=== PATIENT | female | born 1965 | race American Indian/Alaskan Native ===

== ENCOUNTER 2018-04-25 08:28 | Day surgery (SDC) | payer BC ==
--- NOTE | 2018-04-25 11:31 | PCM.SURG1 ---
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 Post-Operative Diagnosis: Thyroid nodule Operation Performed: US guided FNA Specimen/Specimens Removed: 25 g FNA x 5 passes Estimated Blood Loss: EBL {In ML}: 0 Blood Products Given: N/A Drains Used: No Drains Post-Op Condition: Good Date of Surgery/Procedure: 04/25/18 Time of Surgery/Procedure: 11:25
--- NOTE | 2018-04-25 11:32 | CP.SDSHP ---
Same Day Surgery H & P - History Proposed Procedure: US guided FNA thyroid nodule Pre-Op Diagnosis: Thyroid nodule - Allergies Allergies: Allergies ibuprofen Allergy (Verified 04/25/18 08:48) RASH - Physical Exam Vital Signs: Vital Signs 04/25/18 08:37 Temperature 97.4 F L Pulse Rate 77 Respiratory 20 Rate Blood Pressure 154/91 H O2 Sat by Pulse 98 Oximetry Mental Status: Alert & Oriented x3 Neuro: WNL Heart: WNL - Impression Impression: Pt with a 1.7 cm complex left thyroid nodule extending into the isthmus. Plan FNA. Pt. Evaluated Today:Candidate for Anesthesia & Procedure: No Short Stay Discharge - Short Stay Discharge Admitting Diagnosis/Reason for Visit: DX: E04.1-THYROID BIOPSY Disposition: HOME/ ROUTINE
[2018-04-25 12:00] VITALS: BP 145/83; PULSE 64; RESP 18; TEMP 97.8; O2SAT 100
--- NOTE | 2018-04-27 11:28 | US ---
PROCEDURE: Date of Procedure: 04/25/2018 PROCEDURE: 1. Ultrasound guided FNA of left isthmus thyroid nodule, CPT 92429 2. Ultrasound guidance for FNA, 67812 Medications:3cc 1% Lidocaine HISTORY: Enlarged left isthmus thyroid nodule. TECHNIQUE: Following informed consent and procedure time-out, a limited ultrasound patient's neck confirmed the presence of a 1.8 cm complex left thyroid nodule which is predominantly solid. After the patient's neck was prepped and draped in the usual sterile fashion, the skin was anesthetized with 1% lidocaine. Ultrasound-guided fine needle aspiration was then performed of the dominant left thyroid nodule. A total of 5 passes were made into the nodule with 25 gauge needle under ultrasound guidance. The FNA specimen was sent for routine pathology. Post biopsy ultrasound showed no hematoma. IMPRESSION: Ultrasound-guided FNA of the dominant left thyroid nodule.
== END 2018-04-25 12:10 | disposition home or self-care (01) ==
LOC: C.SPRAD 08:28
PROVIDERS: ATTEND Radiology Vascular & Interventional Radiology
DX: E04.1 Nontoxic single thyroid nodule (principal)